=== PATIENT | male | born 1970 ===

== ENCOUNTER 2024-06-25 05:40 | Day surgery (SDC) | payer BC, SELFPAY ==
[2024-06-25 07:13] VITALS: BMI 47.5
[2024-06-25 07:16] VITALS: BP 125/88
[2024-06-25 07:30] VITALS: BMI 47.5
[2024-06-25 08:35] VITALS: BP 92/70
[2024-06-25 08:50] VITALS: BP 105/81
[2024-06-25 09:05] VITALS: BP 138/85
== END 2024-06-25 09:30 | disposition home or self-care (01) ==
LOC: GI 05:40
PROVIDERS: ATTENDING PHYSICIAN Internal Medicine Gastroenterology
DX: Z12.11 Encounter for screening for malignant neoplasm of colon (principal); D12.2 Benign neoplasm of ascending colon; K63.5 Polyp of colon; K57.30 Diverticulosis of large intestine without perforation or abscess without bleeding; K64.8 Other hemorrhoids; Z98.890 Other specified postprocedural states
CPT/HCPCS: 45385; 88305

== ENCOUNTER 2025-04-22 06:32 | Day surgery (SDC) | payer BC, SELFPAY | END 2025-04-22 14:32 | disposition home or self-care (01) | LOC: GI 06:32 | PROVIDERS: ATTENDING PHYSICIAN Internal Medicine Gastroenterology | DX: K63.5 Polyp of colon (principal); K57.30 Diverticulosis of large intestine without perforation or abscess without bleeding; K64.8 Other hemorrhoids; R19.4 Change in bowel habit | CPT/HCPCS: 45385; 45380; 88305 ==